=== PATIENT | male | born 1945 | race Caucasian/White ===

== ENCOUNTER → 2020-12-16 | Outpatient (CLI) | payer MEDICARE ==
[~2020-12-16] MED LIST: ASPIRIN81 MG PO; EZALLOR SPRINKL20 MG PO; ISOSORBIDE MONO60 MG PO; JARDIANCE10 MG PO; MULTI-VITAMIN1 EACH PO; NITROMIST4.1 GM TL; NORCO 5-325 TA1 EACH PO; PROAIR HFA8.5 GM INH; SINGULAIR10 MG PO; TOPROL XL100 MG PO; VIBRAMYCIN 100100 MG GT; [UNRECOGNIZED DRUG - OTHER]
== END ==
LOC: RAD 11:03
DX: R05 Cough (principal)
CPT/HCPCS: 71046

== ENCOUNTER → 2021-08-20 | Outpatient (CLI) | payer MEDICARE | LOC: EXRD 08-07 13:30 | DX: I26.99 Other pulmonary embolism without acute cor pulmonale (principal) | CPT/HCPCS: 93970 ==